=== PATIENT | female | born 1930 | race Caucasian/White ===

== ENCOUNTER 2016-05-06 15:16 | Outpatient (CLI) | payer OTHER ==
--- NOTE | 2016-05-06 16:17 | DIAGNOSTIC IMAGING REPORT ---
PROCEDURE: XR THORACIC SPINE 3 VIEWS INDICATION: BACK PX,THORACIC REGION TECHNIQUE: Three views. COMPARISON: CT of the thorax dated the 05/18/15 FINDINGS: There are multiple compression deformities from T6-T12. Since the previous study there has been increased compression of the T10 vertebral body. Again there is kyphosis primarily originating at T6. IMPRESSION: 1. Multiple compression fractures T6-T12. Increased compression of the T10 vertebral body since the previous study.
== END 2016-05-06 23:00 ==
LOC: XR SRH 15:16
DX: S22.050A Wedge compression fracture of T5-T6 vertebra, initial encounter for closed fracture (principal); S22.060A Wedge compression fracture of T7-T8 vertebra, initial encounter for closed fracture; S22.070A Wedge compression fracture of T9-T10 vertebra, initial encounter for closed fracture; S22.080A Wedge compression fracture of T11-T12 vertebra, initial encounter for closed fracture

== ENCOUNTER 2016-05-23 13:51 | Outpatient (CLI) | payer OTHER ==
--- NOTE | 2016-05-23 15:41 | DIAGNOSTIC IMAGING REPORT ---
PROCEDURE: DEXA BONE DENSITY STUDY CLINICAL INDICATION: THORACOLUMBAR VERTIBRAL FRACTURE COMPARISON: 02/01/2011 FINDINGS: LUMBAR SPINE: Bone mineral density 0.827 g/cm2, T score -2.0 osteopenia which represents a 9.7% decrease from the previous study LEFT HIP: Bone mineral density 0.618 g/cm2, T score -2.7 osteoporosis which represents an 8.4% decrease from the previous study LEFT FEMORAL NECK: Bone mineral density 0.594 g/cm2, T score -2.3 osteopenia which represents a 6.5% decrease from the previous study FRACTURE RISK CALCULATION ( when applicable): 10-year fracture risk of a major osteoporotic fracture and of a hip fracture not reported because some T-score at or below -2.5 (T score greater or equal to -1.0 to: NORMAL) (T score from -1.1 to -2.4: OSTEOPENIA) (T score ess than or equal to -2.5: OSTEOPOROSIS) IMPRESSION: 1. Osteoporosis left hip osteopenia lumbar spine and femoral neck with 8.4, 9.7, and 6.5% decreases in bone mineral density respectively
== END 2016-05-23 23:00 ==
LOC: XR SRH 13:51
DX: M81.8 Other osteoporosis without current pathological fracture (principal)

== ENCOUNTER 2016-06-02 12:53 | Outpatient (CLI) | payer OTHER ==
--- NOTE | 2016-06-02 14:34 | DIAGNOSTIC IMAGING REPORT ---
PROCEDURE: CT HEAD WITHOUT CONTRAST INDICATION: VERTIGO TECHNIQUE: Axial CT images were acquired through the head. Coronal and sagittal reformations were created. COMPARISON: None. FINDINGS: No intracranial hemorrhage or extraaxial fluid collections. Ventricles are normal in size, shape and position. There is no mass, mass effect or midline shift. The phoenix-white matter differentiation is normal. There is no edema. The calvarium is intact. The paranasal sinuses and mastoid air cells are normally aerated. The extracranial soft tissues and orbits are normal. IMPRESSION: 1. No CT evidence of acute intracranial process. 2. Findings discussed with Yordy Lofton at 02:[address] scans at this facility use dose modulation, iterative reconstruction, and/or weight-based dosing when appropriate to reduce radiation dose to as low as reasonably achievable.
== END 2016-06-02 23:00 | disposition home or self-care (01) ==
LOC: CT SRH 12:53 → LAB SRH 12:53
DX: R42 Dizziness and giddiness (principal)
CPT/HCPCS: 90047; 90074; 91286; 95059